=== PATIENT | female | born 1955 | race Caucasian/White ===

== ENCOUNTER 2019-04-14 16:17 | Emergency (ER) | payer MEDICARE, OTHER ==
--- NOTE | 2019-04-14 16:52 | ED ---
Wound/Laceration HPI - General Chief Complaint: Wound/Laceration Stated Complaint: Wound on foot Time Seen by Provider: 04/14/19 16:37 Source: patient Mode of arrival: ambulatory Limitations: no limitations - History of Present Illness Initial Comments: Patient is a 63-year-old female with history of hepatic ulcers and diabetes presents emergency Department with a chief complaint of diabetic ulcer. She reports most recent ulcer started about 1.5 weeks ago and is located on the right second toe. She reports minimal pain but does report some discharge from the toe. She also reports some surrounding erythema. She reports full range of motion in the toes. Denies any night sweats fevers or chills. She states that her primary care checked progress of her feet. She does have diabetic neuropathy so she is not fully able to feel the infection due to decreased sensation. - Related Data Previous Rx's Medication Instructions Recorded Sulfamethox-Tmp 800-160Mg [Bactrim 1 each PO Q12HR #20 tab 04/14/19 Ds] Allergies Allergy/AdvReac Type Severity Reaction Status Date / Time ibuprofen [From Motrin] Allergy Rash/Hives Verified 04/14/19 16:33 Review of Systems ROS Statement: Those systems with pertinent positive or pertinent negative responses have been documented in the HPI. ROS Other: All systems not noted in ROS Statement are negative. Past Medical History Past Medical History: COPD, Diabetes Mellitus, Hypertension Additional Past Medical History / Comment(s): neuropathy History of Any Multi-Drug Resistant Organisms: None Reported Additional Past Surgical History / Comment(s): stent in leg Past Psychological History: No Psychological Hx Reported Smoking Status: Current every day smoker Past Alcohol Use History: None Reported Past Drug Use History: None Reported General Exam Limitations: no limitations General appearance: alert, in no apparent distress Head exam: Present: atraumatic, normocephalic, normal inspection Eye exam: Present: normal appearance ENT exam: Present: normal exam, normal oropharynx Neck exam: Present: normal inspection, full ROM Respiratory exam: Present: normal lung sounds bilaterally Cardiovascular Exam: Present: regular rate, normal rhythm, normal heart sounds Extremities exam: Present: full ROM (4 range of motion in the right second toe.), tenderness (Mild tenderness of palpation), other (+2 dorsalis pedis and posterior tibialis bilaterally.). Absent: normal inspection (Also on the medial aspect of the second right toe. Small white discharge noted. No ecchymosis of the toes.) Back exam: Present: normal inspection, full ROM Neurological exam: Present: alert, oriented X3 Psychiatric exam: Present: normal affect, normal mood Skin exam: Present: warm, dry, intact, normal color Course Vital Signs 04/14/19 04/14/19 16:29 16:50 Temperature 97.9 F Pulse Rate 78 Respiratory 18 16 Rate Blood Pressure 160/62 O2 Sat by Pulse 99 Oximetry Medical Decision Making - Medical Decision Making Patient is 63-year-old female with history of herpetic ulcers and diabetes presenting to the emergency department with a chief complaint of a diabetic ulcer. Exam patient does have a small ulcer measuring approximately 7 mm in diameter on the right second digit. There is small amounts of white discharge. Surrounding erythema, mild. Patient has full range of motion. Neurovascularly intact. She still has sensation in the foot. There is no foul smell. X-ray negative for signs of osteomyelitis. Patient will be treated with Bactrim which typically works well for her. She has an appointment next week with primary care. Strict return parameters were thoroughly discussed the patient was or standing and agreeable. Case discussed with physician. Disposition Clinical Impression: Diabetic ulcer of toe Disposition: HOME SELF-CARE Condition: Stable Instructions (If sedation given, give patient instructions): Diabetic Foot Ulcers (ED) Additional Instructions: Please follow up with primary care. Take medication as directed. Please return to emergency department if symptoms worsen. Prescriptions: Sulfamethox-Tmp 800-160Mg [Bactrim Ds] 1 each PO Q12HR #20 tab Is patient prescribed a controlled substance at d/c from ED?: No Referrals: Nonstaff,Physician [Primary Care Provider] - 1-2 days Time of Disposition: 17:26
--- NOTE | 2019-04-14 16:58 | XR ---
EXAMINATION TYPE: XR foot limited RT DATE OF EXAM: 04/14/2019 COMPARISON: NONE HISTORY: Second digit ulcer TECHNIQUE: 2 views FINDINGS: There is some mild spurring at the first MP joint. The tarsals are intact. There is plantar calcaneal spurring. Second digit appears intact. I see no focal bone destruction. IMPRESSION: No evidence of osteomyelitis. Calcaneal spurring.
[2019-04-14] MEDS ORDERED: SULFAMETH-TMP DS STARTER PACK 2 TAB BTL PO STA (17:18)
[2019-04-14 18:05] VITALS: BP 151/68; PULSE 88; RESP 18; TEMP 98
== END 2019-04-14 18:00 | disposition home or self-care (01) ==
LOC: EC 16:17
DX: E11.622 Type 2 diabetes mellitus with other skin ulcer (principal); L97.519 Non-pressure chronic ulcer of other part of right foot with unspecified severity; E11.40 Type 2 diabetes mellitus with diabetic neuropathy, unspecified; F17.200 Nicotine dependence, unspecified, uncomplicated; Z88.6 Allergy status to analgesic agent
CPT/HCPCS: 87070; 87077; 87186; 87205; 99283

== ENCOUNTER 2019-04-15 11:31 | Emergency (ER) | payer MEDICARE, OTHER ==
[2019-04-15 11:41] VITALS: RESP 16; TEMP 98
[2019-04-15] MEDS ORDERED: SODIUM CHLORIDE 0.9% 1,000 ML IV STA (11:52)
[2019-04-15] MEDS ORDERED: cloNIDine HCL 0.2 MG TAB PO STA (11:52)
[2019-04-15] MEDS ORDERED: ONDANSETRON 4 MG/2 ML VIAL IVP STA (11:52)
[2019-04-15 12:15] LABS: Basophils # (A) 0.1 k/uL (0-0.2); Basophils % (A) 1 %; Eosinophils # (A) 0.2 k/uL (0-0.7); Eosinophils % (A) 1 %; HGB 15.7 gm/dL (11.4-16.0); Lymphocytes # (A) 1.3 k/uL (1.0-4.8); Lymphocytes % (A) 10 %; MCH 27.7 pg (25.0-35.0); MCHC 32.6 g/dL (31.0-37.0); Mean Platelet Volume 9.7; Monocytes # (A) 0.4 k/uL (0-1.0); Monocytes % (A) 3 %; Neutrophils # (A) 10.8 k/uL (1.3-7.7); Neutrophils % (A) 84 %; Platelet Count 288 k/uL (150-450); RBC 5.65 m/uL (3.80-5.40); RDW 14.6 % (11.5-15.5); WBC 12.9 k/uL (3.8-10.6)
[2019-04-15 12:24] LABS: Albumin 4.6 g/dL (3.5-5.0); Potassium 4.1 mmol/L (3.5-5.1); Total Bilirubin 1.1 mg/dL (0.2-1.3); Total Protein 7.7 g/dL (6.3-8.2)
--- NOTE | 2019-04-15 12:24 | ED ---
Abdominal Pain HPI - General Chief Complaint: Abdominal Pain Stated Complaint: epigastric pain Time Seen by Provider: 04/15/19 11:39 Source: EMS Mode of arrival: EMS - History of Present Illness Initial Comments: Patient is a 63-year-old female presenting to emergency Department with complaints of nausea, abdominal cramping since this morning. Patient states she was in the ER yesterday for a possible toe infection and was started on Bactrim. Patient states she took the first dose yesterday and then all of her symptoms began early this morning. Patient does not remember taking Bactrim in the past. Patient describes her pain as abdominal "cramping everywhere", nausea and vomiting as well as mild diarrhea. Patient denies shortness of breath, cough, chest pain, urinary complaints. Patient has no other complaints at this time. Upon arrival, patient's BP was elevated at 250/98, rest of vitals are normal. Patient states she does take hypertension medication but did not take it this morning because she was so nauseous. - Related Data Previous Rx's Medication Instructions Recorded Sulfamethox-Tmp 800-160Mg [Bactrim 1 each PO Q12HR #20 tab 04/14/19 Ds] Cephalexin [Keflex] 500 mg PO Q6HR #40 cap 04/15/19 Ondansetron Odt [Zofran Odt] 4 mg PO Q8HR PRN #10 tab 04/15/19 Allergies Allergy/AdvReac Type Severity Reaction Status Date / Time ibuprofen [From Motrin] Allergy Rash/Hives Verified 04/14/19 16:33 Review of Systems ROS Statement: Those systems with pertinent positive or pertinent negative responses have been documented in the HPI. ROS Other: All systems not noted in ROS Statement are negative. Past Medical History Past Medical History: COPD, Diabetes Mellitus, Hypertension Additional Past Medical History / Comment(s): neuropathy History of Any Multi-Drug Resistant Organisms: None Reported Additional Past Surgical History / Comment(s): stent in leg 2017 Past Psychological History: No Psychological Hx Reported Smoking Status: Current every day smoker Past Alcohol Use History: None Reported Past Drug Use History: None Reported General Exam - General Exam Comments Initial Comments: GENERAL: Well-appearing, well-nourished and in no acute distress. HEAD: Atraumatic, normocephalic. EYES: Pupils equal round and reactive to light, extraocular movements intact, sclera anicteric, conjunctiva are normal. ENT: TMs normal, nares patent, oropharynx clear without exudates. Moist mucous m embranes. NECK: Normal range of motion, supple without lymphadenopathy or JVD. LUNGS: Breath sounds clear to auscultation bilaterally and equal. No wheezes rales or rhonchi. HEART: Regular rate and rhythm without murmurs, rubs or gallops. ABDOMEN: Mild tenderness to palpation of the entire abdomen, no sharp shooting pain with deep palpation. Soft, normoactive bowel sounds. No guarding, no rebound. No masses appreciated. : Deferred EXTREMITIES: Normal range of motion, no pitting or edema. No clubbing or cyanosis. NEUROLOGICAL: Normal speech, normal gait. PSYCH: Normal mood, normal affect. SKIN: Warm, Dry, normal turgor, no rashes or lesions noted. Course Vital Signs 04/15/19 04/15/19 04/15/19 11:33 11:41 12:54 Temperature 98.0 F Pulse Rate 65 76 Respiratory 16 16 Rate Blood Pressure 250/98 242/97 213/83 O2 Sat by Pulse 98 99 Oximetry 04/15/19 14:09 Temperature 98.0 F Pulse Rate 76 Respiratory 16 Rate Blood Pressure 176/65 O2 Sat by Pulse 99 Oximetry Medical Decision Making - Medical Decision Making Patient is a 63-year-old female presenting with abdominal cramping, nausea, vomiting since early this morning. Patient was prescribed Bactrim yesterday for a toe infection. BP was elevated upon arrival. Patient states she doesn't take her blood pressure medication this morning because she was nauseous. Laboratory today shows no acute abnormalities. UA is normal. No signs of infection. Patient was given fluids, Zofran, Protonix as well as her normal clonidine. I discussed these findings with the patient and that her symptoms most likely related to the Bactrim. Patient will stop Bactrim and start Keflex for her toe infection. Patient is in agreement with this plan of care. Patient be discharged with Zofran to take as needed for nausea. Patient will follow up with her doctor next week. Patient's BP normalized. Case discussed with Dr. Byrne. Return parameters were discussed with the patient she verbalized understanding. - Lab Data Result diagrams: 04/15/19 12:05 04/15/19 12:05 Lab Results 04/15/19 04/15/19 04/15/19 Range/Units 12:05 12:05 12:55 WBC 12.9 H (3.8-10.6) k/uL RBC 5.65 H (3.80-5.40) m/uL Hgb 15.7 (11.4-16.0) gm/dL Hct 48.0 H (34.0-46.0) % MCV 85.0 (80.0-100.0) fL MCH 27.7 (25.0-35.0) pg MCHC 32.6 (31.0-37.0) g/dL RDW 14.6 (11.5-15.5) % Plt Count 288 (150-450) k/uL Neutrophils % 84 % Lymphocytes % 10 % Monocytes % 3 % Eosinophils % 1 % Basophils % 1 % Neutrophils # 10.8 H (1.3-7.7) k/uL Lymphocytes # 1.3 (1.0-4.8) k/uL Monocytes # 0.4 (0-1.0) k/uL Eosinophils # 0.2 (0-0.7) k/uL Basophils # 0.1 (0-0.2) k/uL Sodium 142 (137-145) mmol/L Potassium 4.1 (3.5-5.1) mmol/L Chloride 103 (98-107) mmol/L Carbon Dioxide 27 (22-30) mmol/L Anion Gap 12 mmol/L BUN 17 (7-17) mg/dL Creatinine 0.82 (0.52-1.04) mg/dL Est GFR (CKD-EPI)AfAm 87 (>60 ml/min/1.73 sqM) Est GFR (CKD-EPI)NonAf 75 (>60 ml/min/1.73 sqM) Glucose 128 H (74-99) mg/dL Calcium 10.0 (8.4-10.2) mg/dL Total Bilirubin 1.1 (0.2-1.3) mg/dL AST 24 (14-36) U/L ALT 16 (4-34) U/L Alkaline Phosphatase 94 (38-126) U/L Total Protein 7.7 (6.3-8.2) g/dL Albumin 4.6 (3.5-5.0) g/dL Urine Color Light Yellow Urine Appearance Clear (Clear) Urine pH 5.5 (5.0-8.0) Ur Specific [place] 1.006 (1.001-1.035) Urine Protein Trace H (Negative) Urine Glucose (UA) Negative (Negative) Urine Ketones 1+ H (Negative) Urine Blood Negative (Negative) Urine Nitrite Negative (Negative) Urine Bilirubin Negative (Negative) Urine Urobilinogen <2.0 (<2.0) mg/dL Ur Leukocyte Esterase Negative (Negative) Disposition Clinical Impression: Nausea vomiting and diarrhea, Diabetic ulcer of toe, Medication reaction Disposition: HOME SELF-CARE Condition: Stable Instructions (If sedation given, give patient instructions): Acute Nausea and Vomiting (ED) Additional Instructions: Please return to the Emergency Department if symptoms worsen or any other concerns. Use Zofran as needed for nausea, vomiting. Continue to increase fluid intake. Follow-up with PCP as discussed next week. Prescriptions: Cephalexin [Keflex] 500 mg PO Q6HR #40 cap Ondansetron Odt [Zofran Odt] 4 mg PO Q8HR PRN #10 tab PRN Reason: Nausea Is patient prescribed a controlled substance at d/c from ED?: No Referrals: Nonstaff,Physician [Primary Care Provider] - 1-2 days
[2019-04-15 12:57] VITALS: PULSE 76
[2019-04-15 13:07] LABS: Appearance,Urine Clear (Clear); Bilirubin,Urine Negative (Negative); Blood,Urine Negative (Negative); Color,Urine Light Yellow; Glucose,Urine (UA) Negative (Negative); Ketones,Urine 1+ (Negative); Leukocyte Esterase,Urine Negative (Negative); Nitrite,Urine Negative (Negative); PH, Urine 5.5 (5.0-8.0); Protein,Urine Trace (Negative); Specific Gravity,Urine 1.006 (1.001-1.035); Urobilinogen,Urine <2.0 mg/dL (<2.0)
[2019-04-15] MEDS ORDERED: PANTOPRAZOLE 40 MG/10 ML VIAL IVP STA (13:50)
[2019-04-15 14:09] VITALS: BP 176/65
== END 2019-04-15 14:28 | disposition home or self-care (01) ==
LOC: EC 11:31
DX: R11.2 Nausea with vomiting, unspecified (principal); R19.7 Diarrhea, unspecified; T36.8X5A Adverse effect of other systemic antibiotics, initial encounter; E11.621 Type 2 diabetes mellitus with foot ulcer; L97.509 Non-pressure chronic ulcer of other part of unspecified foot with unspecified severity; I10 Essential (primary) hypertension; R10.13 Epigastric pain; F17.200 Nicotine dependence, unspecified, uncomplicated; Z88.6 Allergy status to analgesic agent
CPT/HCPCS: 36415; 80053; 85025; 81003; 99284; 96374; 96375; 96361; J2405; C9113